=== PATIENT | male | born 1995 | race Hispanic/Latino ===

== ENCOUNTER 2024-12-08 13:35 | Emergency (ER) | payer SELFPAY ==
[~2024-12-08] VITALS: Ht 182.9 cm; Wt 124.7 kg
[2024-12-08 14:00] LABS: LEUKOCYTE ESTERASE ,URINE NEGATIVE (NEGATIVE); NITRATE,URINE NEGATIVE (NEGATIVE); PH,URINE 5.5 (4.5-8.0)
[2024-12-08 14:01] LABS: APPEARANCE,URINE CLEAR; UA COLOR YELLOW
[2024-12-08 14:02] VITALS: BP 164/130; PULSE 96; RESP 20; TEMP 98.3; O2SAT 95
[2024-12-08 14:05] LABS: BASOPHIL # 0.1 10^3/uL (0.0-0.1); EOSINOPHIL # 0.1 10^3/uL (0.0-0.2); EOSINOPHIL % 1.2 % (0.0-5.0); HEMOGLOBIN 15.9 g/dL (13.9-16.3); LYMPHOCYTES # 1.63 10^3/uL1 (1.0-4.8); LYMPHOCYTES % 17.3 % (24.0-44.0); MEAN CORP HGB CONCENTRATION 31.8 g/dL (33-36.5); MEAN CORP VOLUME 88.2 fL (78-100); MONOCYTES # 0.8 10^3/uL (0.3-0.8); MONOCYTES % 8.8 % (5.0-12.0); NEUTROPHIL # 6.8 10^3/uL (1.8-7.7); NEUTROPHILS % 71.6 % (41.0-85.0); PLATELET COUNT 307 10^3/uL (150-400); RED BLOOD CELL 5.67 10^6/uL (4.50-5.90); RED CELL DISTRIBUTION WIDTH 12.8 % (11.5-14.5); WHITE BLOOD CELL 9.4 10^3/uL (4.5-11.0)
[2024-12-08 14:08] LABS: +ADD MANUAL DIFF(NO CHRG) NO
[2024-12-08] MEDS ORDERED: TORADOL ONE ×2 (14:11→15:49)
[2024-12-08] MEDS ORDERED: ZOFRAN ONE (14:11)
[2024-12-08] MEDS: TORADOL IV STA ×2 (14:18→15:52)
[2024-12-08] MEDS: ZOFRAN IV STA (14:18)
[2024-12-08 14:29] LABS: PROTHROMBIN PROTIME 10.3 SEC (9.3-11.6)
[2024-12-08 14:38] LABS: ALBUMIN(ML) 3.8 g/dL (3.4-5.0); ALBUMIN/GLOBULIN RATIO 0.883; ANION GAP 14.5; BUN/CREATININE RATIO 14.03 (10.0-20.0); CALCIUM 9.2 mg/dL (8.4-10.5); CARBON DIOXIDE 24.5 mmol/L (20.0-32); CREATININE SERUM 1.14 mg/dL (0.59-1.40); EST GFR, NON-AA 74.9 (>/=60)
[2024-12-08 14:46] VITALS: BP 176/123; PULSE 93; RESP 20; TEMP 98.3; O2SAT 95
[2024-12-08 15:19] VITALS: BP 144/103; PULSE 86; RESP 20; TEMP 98.3; O2SAT 94
== END 2024-12-08 15:54 | disposition home or self-care (01) ==
LOC: ER 13:35
DX: K82.8 Other specified diseases of gallbladder (principal); I10 Essential (primary) hypertension; K21.9 Gastro-esophageal reflux disease without esophagitis; F17.290 Nicotine dependence, other tobacco product, uncomplicated
CPT/HCPCS: 99285; 96374; 76705; 96375; 96376; 80053; 85025; 86677; 36415; 81001; 83690; 85610; 85730; J1885 ×2; J2405